=== PATIENT | female | born 1955 | race Two or more races ===

== ENCOUNTER → 2016-10-29 | Outpatient (CLI) | payer MEDICARE, MEDICAID | LOC: RAD 12:39 | PROVIDERS: ATTEND Urology | DX: N20.1 Calculus of ureter (principal) | CPT/HCPCS: 74178; 82565 ==

== ENCOUNTER 2018-09-04 12:19 | Emergency (ER) | payer MEDICARE, MEDICAID ==
--- NOTE | 2018-09-04 13:49 | ER Document Report ---
ED ENT - General Chief Complaint: Sore Throat Stated Complaint: SORE THROAT Time Seen by Provider: 09/04/18 13:06 Mode of Arrival: Ambulatory Information source: Patient Notes: 63-year-old female presents to ED for complaint of sore throat times a month worse at night when she lays down. She states she has been treated with antibiotics by her PCP. She states she went back to see him because she was not having any relief from the ear pain and sore throat. She states he referred her to ENT. She went to the ENT who told her that she had a normal ear but she had some fluid behind the ear and it would take 6-8 weeks for this to heal. Patient states she still continues to have stabbing pain and she cannot wait 6-8 weeks to have relief from this pain. She states she is taking tramadol this morning and did not have really any relief from her pain. Patient is alert and oriented respirations regular and unlabored speaking in full sentences walks with a gait. TRAVEL OUTSIDE OF THE [place] IN LAST 30 DAYS: No - HPI Patient complains to provider of: Ear problem, Nose problem, Throat problem Onset: Other - More than a month Onset/Duration: Persistent Quality of pain: Sharp, Stabbing Severity: Severe Pain Level: 5 Context: Recent Illness Location of pain: Ears, Nose, Throat Associated symptoms: Ear pain, Runny nose, Sinus pain, Sinus drainage, Sore throat, Swollen glands - Right-sided lymphadenopathy posterior cervical chain Similar symptoms previously: Yes Recently seen / treated by doctor: Yes - Related Data Allergies/Adverse Reactions: Penicillins Allergy (Verified 10/04/11 17:05) unknown Sulfa (Sulfonamide Antibiotics) Allergy (Verified 10/04/11 17:04) rash tetracycline [Tetracycline] Allergy (Verified 10/04/11 17:05) bone pain Iodinated Contrast- Oral and IV Dye [Iodinated Contrast Media - IV Dye] Adverse Reaction (Unverified 05/14/16 13:18) Itching Past Medical History - General Information source: Patient - Social History Smoking Status: Former Smoker Chew tobacco use (# tins/day): No Frequency of alcohol use: None Drug Abuse: None Lives with: Family Family History: Reviewed & Not Pertinent Patient has suicidal ideation: No Patient has homicidal ideation: No - Past Medical History Cardiac Medical History: Reports: Hx Hypercholesterolemia, Hx Hypertension Pulmonary Medical History: Reports: Hx Asthma EENT Medical History: Reports: None Neurological Medical History: Reports: None Endocrine Medical History: Reports: None Renal/ Medical History: Reports: None Malignancy Medical History: Reports: None GI Medical History: Reports: Hx Gastroesophageal Reflux Disease Musculoskeletal Medical History: Reports None Skin Medical History: Reports None Psychiatric Medical History: Reports: Hx Depression Traumatic Medical History: Reports: None Infectious Medical History: Reports: None Past Surgical History: Reports: Hx Cholecystectomy, Hx Hysterectomy, Hx Tonsillectomy - Immunizations Hx Diphtheria, Pertussis, Tetanus Vaccination: Yes - < 5 yrs Hx Pneumococcal Vaccination: 07/11/10 Review of Systems - Review of Systems Notes: REVIEW OF SYSTEMS: CONSTITUTIONAL : She states she has had cough cold congestion runny nose sore throat and ear pain for more than a month. She states the pain is worse at night and she feels like she has drainage down her throat at nighttime. She states that she has had swelling to the right side of her neck and her lymph nodes off and on. She states she has been treated by her PCP with antibiotics with no relief she was then referred to ENT who told her that it would take 6-8 weeks for the fluid removed from her ears. Patient states she cannot wait 6-8 weeks for relief. EENT: See above. Patient is not having any difficulty swallowing. She speaks in full sentences. CARDIOVASCULAR: Denies chest pain. Denies palpitations or racing or irregular heart beat. Denies ankle edema. RESPIRATORY: Denies cough, cold, or chest congestion. Denies shortness of breath, difficulty breathing, or wheezing. GASTROINTESTINAL: Denies abdominal pain or distention. Denies nausea, vomiting , or diarrhea. Denies blood in vomitus, stools, or per rectum. Denies black, tarry stools. Denies constipation. GENITOURINARY: Denies difficulty urinating, painful urination, burning, frequency, blood in urine, or discharge. FEMALE GENITOURINARY: Denies vaginal bleeding, heavy or abnormal periods, irregular periods. Denies vaginal discharge or odor. MUSCULOSKELETAL: Denies back or neck pain or stiffness. Denies joint pain or swelling. SKIN: Denies rash, lesions or sores. HEMATOLOGIC : Denies easy bruising or bleeding. LYMPHATIC: Denies swollen, enlarged glands. NEUROLOGICAL: Denies confusion or altered mental status. Denies passing out or loss of consciousness. Denies dizziness or lightheadedness. Denies headache. Denies weakness or paralysis or loss of use of either side. Denies problems with gait or speech. Denies sensory loss, numbness, or tingling. Denies seizures. PHYSICAL EXAMINATION: GENERAL: Well-appearing, well-nourished and in no acute distress. HEAD: Atraumatic, normocephalic. EYES: Pupils equal round and reactive to light, extraocular movements intact, conjunctiva are normal. ENT: Nares patent, oropharynx clear without exudates. Moist mucous membranes. Panic membrane intact no redness no bulging. NECK: Normal range of motion, right posterior cervical chain lymphadenopathy LUNGS: Breath sounds clear to auscultation bilaterally and equal. No wheezes rales or rhonchi. HEART: Regular rate and rhythm without murmurs ABDOMEN: Soft, nontender, nondistended abdomen. No guarding, no rebound. No masses appreciated. Female : deferred Musculoskeletal: Normal range of motion, no pitting or edema. No cyanosis. NEUROLOGICAL: Cranial nerves grossly intact. Normal speech, normal gait. Normal sensory, motor exams PSYCH: Normal mood, normal affect. SKIN: Warm, Dry, normal turgor, no rashes or lesions noted. PSYCHIATRIC: Denies anxiety or stress. Denies depression, suicidal ideation, or homicidal ideation. ALL OTHER SYSTEMS REVIEWED AND NEGATIVE. Dictation was performed using [employer] voice recognition software Physical Exam - Vital signs Vitals: Temp Pulse Resp BP Pulse Ox 98.2 F 58 L 16 189/63 H 97 09/04/18 12:25 09/04/18 12:25 09/04/18 12:25 09/04/18 12:25 09/04/18 12:25 Course - Vital Signs Vital signs: Temp Pulse Resp BP Pulse Ox 98.3 F 59 L 18 169/64 H 97 09/04/18 13:53 09/04/18 13:53 09/04/18 13:53 09/04/18 13:53 09/04/18 13:53 Discharge - Discharge Clinical Impression: Sore throat (viral), Lymphadenopathy of right cervical region, Otalgia, right ear URI (upper respiratory infection) Qualifiers: URI type: unspecified URI Qualified Code(s): J06.9 - Acute upper respiratory infection, unspecified Condition: Stable Disposition: HOME, SELF-CARE Additional Instructions: You were seen today for sore throat, right ear pain, right lymphadenopathy, and a upper respiratory infection that she states has been going on and off for over a month. You have seen your primary care doctor and you have seen your ears nose and throat doctor. Ears nose and throat doctor did tell you there will take 6-8 weeks to get full relief. UPPER RESPIRATORY ILLNESS: You have a viral infection of the respiratory passages -- a "cold." This common infection causes nasal congestion, drainage, and often sore throat and cough. It is highly contagious. The disease usually lasts about 10 to 14 days. There is no "cure" for the viral infection -- it must run its course. If there is a complication, such as bacterial infection in the nose, sinuses, middle ear, or bronchial tubes, antibiotics may be required. The antibiotics won't affect the virus. Drink plenty of fluids. A humidifier may help. An expectorant medication or decongestant may make you more comfortable. Use acetaminophen or ibuprofen for fever or aches. See the doctor if fever persists over two days, if there is any significant worsening of your symptoms, or if you simply fail to improve as expected. COUGH-SUPPRESSANT & EXPECTORANT MEDICATION: You are to use a cough medication as needed for relief of symptoms. This medicine is a combination of an expectorant (to make the mucous thinner and more easily "coughed up") and a cough suppressant (to reduce the frequency of coughing). The cough-suppressant medicine is related to narcotics. You may experience mild nausea and sleepiness. Some patients who are very sensitive to narcotics may have stomach pain from this medicine. Taking the medicine with food reduces these side effects. Do not drive or work with machinery until you know how this medicine affects you. The expectorant should have no side effects. Iodine-containing expectorants (such as organidin) should not be taken by persons with active thyroid disease unless approved by your doctor. Call the doctor if you develop shortness of breath, hives, rash, itching, lightheadedness, or severe nausea and vomiting. USE OF ACETAMINOPHEN (Tylenol): Acetaminophen may be taken for pain relief or fever control. It's much safer than aspirin, offering a wider range of "safe" dosages. It is safe during . Some brand names are Tylenol, Panadol, Datril, Anacin 3, Tempra, and Liquiprin. Acetaminophen can be repeated every four hours. The following are maximum recommended dosages: >89 pounds or adults 650 mg to 900 mg Acetaminophen can be repeated every four hours. Maximum dose not to exceed 4000 mg a day. For your sore throat and went to to try Chloraseptic spray which is over-the- counter, salt and soda solution gargles which I have given you directions for, and Magic mouthwash which to gargle and swallow which will help to decrease the pain in your throat. You need to follow-up with your primary care doctor in the next 2-3 days to let him know that your symptoms are continuing. If your ear pain continues you need to follow-up with the ears nose and throat doctor again. Have your primary doctor reassessed your lymphadenopathy or your swelling to the right side of your neck when you follow-up with him. Continue to take your current medications as prescribed. Your blood pressure was a little high today and you need to follow-up with your primary doctor on that as we discussed. Salt and soda solution 1 quart of water 1 tablespoon of salt 1 teaspoon of baking soda Mixed 3 ingredients together and boil for 1 minute Placed in a covered quart jar Use 1/2 ounce of warm solution to gargle 3 times a day FOLLOW-UP CARE: If you have been referred to a physician for follow-up care, call the physician s office for an appointment as you were instructed or within the next two days. If you experience worsening or a significant change in your symptoms, notify the physician immediately or return to the Emergency Department at any time for re-evaluation. Prescriptions: Nystatin/Dexameth/Diphen [Magic Mouthwash ([facility] Formula) Susp] 5 ml PO QID #120 ml Forms: Elevated Blood Pressure Referrals: AURORA TAYLOR MD [Primary Care Provider] - 09/05/18
[2018-09-04 13:54] VITALS: BP 169/64
== END 2018-09-04 13:58 | disposition home or self-care (01) ==
LOC: ER 12:19
DX: J06.9 Acute upper respiratory infection, unspecified (principal); R59.0 Localized enlarged lymph nodes; H92.01 Otalgia, right ear; J02.9 Acute pharyngitis, unspecified; B97.89 Other viral agents as the cause of diseases classified elsewhere; H92.09 Otalgia, unspecified ear; R09.89 Other specified symptoms and signs involving the circulatory and respiratory systems; Z87.891 Personal history of nicotine dependence; I10 Essential (primary) hypertension; J45.909 Unspecified asthma, uncomplicated
CPT/HCPCS: 99282

== ENCOUNTER 2018-09-09 17:32 | Emergency (ER) | payer MEDICARE, MEDICAID ==
[2018-09-09] MEDS ORDERED: ASPIRIN 81 MG TABLET, CHEWABLE PO ONE (18:43)
--- NOTE | 2018-09-09 18:44 | ER Document Report ---
ED Medical Screen (RME) - General Chief Complaint: Chest Pain Stated Complaint: EAR/CHEST/ARM PAIN Time Seen by Provider: 09/09/18 18:42 Mode of Arrival: Ambulatory Information source: Patient Notes: 63 years old female presents today with earache sore throat cough left precordial chest pain radiating to the left arm for the last 2 days. She kept on complaining many things. Examination by large normal TRAVEL OUTSIDE OF THE [place] IN LAST 30 DAYS: No - Related Data Allergies/Adverse Reactions: Penicillins Allergy (Verified 09/09/18 17:35) unknown Sulfa (Sulfonamide Antibiotics) Allergy (Verified 09/09/18 17:35) rash tetracycline [Tetracycline] Allergy (Verified 09/09/18 17:35) bone pain Iodinated Contrast- Oral and IV Dye [Iodinated Contrast Media - IV Dye] Adverse Reaction (Verified 09/09/18 17:35) Itching Past Medical History - Past Medical History Cardiac Medical History: Reports: Hx Hypercholesterolemia, Hx Hypertension Pulmonary Medical History: Reports: Hx Asthma Renal/ Medical History: Denies: Hx Peritoneal Dialysis GI Medical History: Reports: Hx Gastroesophageal Reflux Disease Psychiatric Medical History: Reports: Hx Depression Past Surgical History: Reports: Hx Cholecystectomy, Hx Hysterectomy, Hx Tonsillectomy - Immunizations Hx Diphtheria, Pertussis, Tetanus Vaccination: Yes - < 5 yrs Physical Exam - Vital signs Vitals: Temp Pulse Resp BP Pulse Ox 98.6 F 71 18 182/68 H 97 09/09/18 17:38 09/09/18 17:38 09/09/18 17:38 09/09/18 17:38 09/09/18 17:38 Course - Vital Signs Vital signs: Temp Pulse Resp BP Pulse Ox 98.6 F 71 18 182/68 H 97 09/09/18 17:38 09/09/18 17:38 09/09/18 17:38 09/09/18 17:38 09/09/18 17:38 Doctor's Discharge - Discharge Referrals: AURORA TAYLOR MD [Primary Care Provider] - Follow up as needed
--- NOTE | 2018-09-09 19:23 | RADIOLOGY REPORT (SQ) ---
EXAM DESCRIPTION: CHEST SINGLE VIEW COMPLETED DATE/TIME: 09/09/2018 7:09 pm REASON FOR STUDY: Chest pain COMPARISON: 08/03/2010 and earlier EXAM PARAMETERS: NUMBER OF VIEWS: One view. TECHNIQUE: Single frontal radiographic view of the chest acquired. RADIATION DOSE: NA LIMITATIONS: None. FINDINGS: LUNGS AND PLEURA: Skin fold versus small right basilar pneumothorax. No left-sided pneumo thorax. No pleural effusion or focal consolidation. MEDIASTINUM AND HILAR STRUCTURES: No masses. Contour normal. HEART AND VASCULAR STRUCTURES: Heart normal in size. Normal vasculature. BONES: No acute findings. HARDWARE: None in the chest. OTHER: No other significant finding. IMPRESSION: Skin fold versus small right basilar pneumothorax. Recommend repeat PA and lateral radi ographs for clarification. TECHNICAL DOCUMENTATION: JOB ID: [id number] [employer]- All Rights Reserved Reading location - IP/workstation name: [email or web address]
[2018-09-09 19:33] LABS: ABSOLUTE BASOPHILS # (AUTO) 0.1 10^3/uL (0.0-0.2); ABSOLUTE EOSINOPHILS # (AUTO) 0.5 10^3/uL (0.0-0.6); ABSOLUTE LYMPHOCYTES (AUTO) 2.5 10^3/uL (0.5-4.7); ABSOLUTE MONOCYTES (AUTO) 0.6 10^3/uL (0.1-1.4); BASOPHILS % (AUTO) 1.4 % (0-2); EOSINOPHILS % (AUTO) 5.4 % (0-6); HEMATOCRIT 37.6 % (36.0-47.0); HEMOGLOBIN 11.5 g/dL (12.0-15.5); LYMPHOCYTES % (AUTO) 28.7 % (13-45); MEAN CORPUSCULAR HEMOGLOBIN 18.5 pg (27.0-33.4); MEAN CORPUSCULAR HGB CONC 30.6 g/dL (32.0-36.0); MONOCYTES % (AUTO) 6.5 % (3-13); PLATELET COUNT 271 10^3/uL (150-450); RED BLOOD COUNT 6.22 10^6/uL (3.72-5.28); RED CELL DISTRIBUTION WIDTH 20.4 % (11.5-14.0); TOTAL CELLS COUNTED % (AUTO) 100 %; WHITE BLOOD COUNT 8.7 10^3/uL (4.0-10.5)
[2018-09-09 19:47] LABS: PLATELET COMMENT ADEQUATE
--- NOTE | 2018-09-09 19:47 | EKG REPORT ---
SEVERITY:- ABNORMAL ECG - SINUS RHYTHM LEFT VENTRICULAR HYPERTROPHY : Confirmed by: Nitish Hernandez MD 09-Sep-2018 19:46:46
[2018-09-09 19:49] LABS: OVALOCYTES SLIGHT
[2018-09-09 19:50] LABS: MEAN CORPUSCULAR VOLUME 61 fl (80-97); POIKILOCYTOSIS SLIGHT
[2018-09-09 19:51] LABS: ALBUMIN 4.3 g/dL (3.5-5.0); ALKALINE PHOSPHATASE 80 U/L (38-126); ANION GAP 14 (5-19); ASPARTATE AMINO TRANSFERASE 15 U/L (14-36); BLOOD UREA NITROGEN 9 mg/dL (7-20); CALCIUM 9.9 mg/dL (8.4-10.2); CARBON DIOXIDE 30 mmol/L (22-30); CHLORIDE 102 mmol/L (98-107); GLUCOSE 121 mg/dL (75-110); POTASSIUM 4.2 mmol/L (3.6-5.0); SODIUM 146.1 mmol/L (137-145)
[2018-09-09 19:52] LABS: ALANINE AMINOTRANSFERASE 9 U/L (9-52); BILIRUBIN,DIRECT 0.3 mg/dL (0.0-0.4); BILIRUBIN,TOTAL 1.1 mg/dL (0.2-1.3); CREATINE KINASE 32 U/L (30-135); TOTAL PROTEIN 8.1 g/dL (6.3-8.2)
[2018-09-09 20:03] LABS: CREATINE KINASE MB 0.51 ng/mL (<4.55)
[2018-09-09 20:08] LABS: TROPONIN I < 0.012 ng/mL
[2018-09-09 20:29] LABS: FREE T3 3.22 pg/mL (2.77-5.27); FREE T4 (FREE THYROXINE) 1.07 ng/dL (0.78-2.19); THYROID STIMULATING HORMONE 1.85 uIU/mL (0.47-4.68)
--- NOTE | 2018-09-09 22:31 | ER Document Report ---
ED Cardiac - General Chief Complaint: Chest Pain Stated Complaint: EAR/CHEST/ARM PAIN Time Seen by Provider: 09/09/18 18:42 Mode of Arrival: Ambulatory Information source: Patient TRAVEL OUTSIDE OF THE [place] IN LAST 30 DAYS: No - HPI Patient complains to provider of: Chest pain Is the pain a: New problem Chest pain location: Substernal Quality of pain: Cramping Chest pain radiation location: Left arm Severity now: Moderate Severity at worst: Moderate Pain level currently: 3 Chest pain precipitating factors: At Rest Cardiac risk factors: Hypertension Positive cardiac history: No Associated symptoms: None Exacerbated by: Denies Relieved by: Nothing Notes: Patient is a 63-year-old female presenting to the emergency room complaining of left-sided chest pain that radiates to her arm, it comes in waves and is cramping in nature, symptoms have been going on for the past week, worsened somewhat today, states it feels like a spasm, she reports having a upper respiratory viral illness approximately 1 month ago with an ear infection shortly thereafter that she was treated with antibiotics for, she is reporting a sore throat today as well as nasal drainage, denies a fever, cough is nonproductive - Related Data Allergies/Adverse Reactions: Penicillins Allergy (Verified 09/09/18 17:35) unknown Sulfa (Sulfonamide Antibiotics) Allergy (Verified 09/09/18 17:35) rash tetracycline [Tetracycline] Allergy (Verified 09/09/18 17:35) bone pain Iodinated Contrast- Oral and IV Dye [Iodinated Contrast Media - IV Dye] Adverse Reaction (Verified 09/09/18 17:35) Itching Past Medical History - General Information source: Patient - Social History Smoking Status: Never Smoker Chew tobacco use (# tins/day): No Frequency of alcohol use: None Drug Abuse: None Family History: Reviewed & Not Pertinent Patient has suicidal ideation: No Patient has homicidal ideation: No - Past Medical History Cardiac Medical History: Reports: Hx Hypercholesterolemia, Hx Hypertension Pulmonary Medical History: Reports: Hx Asthma Renal/ Medical History: Denies: Hx Peritoneal Dialysis GI Medical History: Reports: Hx Gastroesophageal Reflux Disease Psychiatric Medical History: Reports: Hx Depression Past Surgical History: Reports: Hx Cholecystectomy, Hx Hysterectomy, Hx Tonsillectomy - Immunizations Hx Diphtheria, Pertussis, Tetanus Vaccination: Yes - < 5 yrs Hx Pneumococcal Vaccination: 10/01/10 Review of Systems - Review of Systems Constitutional: No symptoms reported EENT: See HPI Cardiovascular: See HPI Respiratory: See HPI Gastrointestinal: No symptoms reported Genitourinary: No symptoms reported Female Genitourinary: No symptoms reported Musculoskeletal: See HPI Skin: No symptoms reported Hematologic/Lymphatic: No symptoms reported Neurological/Psychological: No symptoms reported -: Yes All other systems reviewed and negative Physical Exam - Vital signs Vitals: Temp Pulse Resp BP Pulse Ox 98.6 F 71 18 182/68 H 97 09/09/18 17:38 09/09/18 17:38 09/09/18 17:38 09/09/18 17:38 09/09/18 17:38 Interpretation: Hypertensive - General General appearance: Appears well, Alert In distress: None - HEENT Head: Normocephalic, Atraumatic Eyes: Normal Conjunctiva: Normal Eyelashes: Normal Pupils: PERRL Pharynx: Erythema. No: Exudate, Tonsillar hypertrophy, Uvular edema, Potential airway comprom. Neck: Normal - Respiratory Respiratory status: No respiratory distress Chest status: Nontender Breath sounds: Normal Chest palpation: Normal - Cardiovascular Rhythm: Regular Heart sounds: Normal auscultation Murmur: No - Abdominal Inspection: Normal Distension: No distension Bowel sounds: Normal Tenderness: Nontender Organomegaly: No organomegaly - Back Back: Normal, Nontender - Extremities General upper extremity: Normal inspection, Nontender, Normal color, Normal ROM , Normal temperature General lower extremity: Normal inspection, Nontender, Normal color, Normal ROM , Normal temperature, Normal weight bearing. No: Jamil's sign - Neurological Neuro grossly intact: Yes Cognition: Normal Orientation: AAOx4 [place] Coma Scale Eye Opening: Spontaneous [place] Coma Scale Verbal: Oriented [place] Coma Scale Motor: Obeys Commands [place] Coma Scale Total: 15 Speech: Normal Motor strength normal: LUE, RUE, LLE, RLE Sensory: Normal - Psychological Associated symptoms: Normal affect, Normal mood - Skin Skin Temperature: Warm Skin Moisture: Dry Skin Color: Normal Course - Re-evaluation Re-evalutation: 09/09/18 23:08 Lab and imaging findings discussed with patient at bedside which are unremarkable except for some mild incidental findings, her symptoms have been going on for the last week, and she has been seen in this emergency department as well as by her primary care provider for them with unremarkable workups each time, patient was advised to continue following with with her primary care provider, was given a prescription for Flexeril for muscle spasms and advised to return if symptoms worsen, patient acknowledges understanding and agreement with this plan - Vital Signs Vital signs: Temp Pulse Resp BP Pulse Ox 98.3 F 71 18 191/65 H 99 09/09/18 22:00 09/09/18 17:38 09/09/18 17:38 09/09/18 22:02 09/09/18 22:02 - Laboratory Result Diagrams: 09/09/18 19:16 09/09/18 19:16 Laboratory results interpreted by me: 09/09/18 09/09/18 19:16 19:16 RBC 6.22 H Hgb 11.5 L MCV 61 L MCH 18.5 L MCHC 30.6 L RDW 20.4 H Sodium 146.1 H Glucose 121 H - Diagnostic Test Radiology reviewed: Image reviewed, Reports reviewed - EKG Interpretation by Me EKG shows normal: Sinus rhythm Rate: Normal Rhythm: NSR Voltage: Consistant with [facility]H Discharge - Discharge Clinical Impression: Throat pain Chest pain Qualifiers: Chest pain type: unspecified Qualified Code(s): R07.9 - Chest pain, unspecified Condition: Stable Disposition: HOME, SELF-CARE Instructions: Chest Pain of Unclear Cause ([facility]) Additional Instructions: Follow up with your primary care provider in one to 2 days. Return to the emergency room immediately if symptoms worsen or any additional concerns. Prescriptions: Cyclobenzaprine HCl [Flexeril 10 Mg Tablet] 10 mg PO TID #10 tablet Referrals: AURORA TAYLOR MD [Primary Care Provider] - Follow up as needed
[2018-09-09] MEDS ORDERED: NEBIVOLOL HCL 5 MG TABLET PO STA (22:32)
[2018-09-09 22:39] VITALS: BP 191/65
[2018-09-12 11:43] LABS: PATH REVIEW PATHOLOGIST REVIEWED
== END 2018-09-09 22:46 | disposition home or self-care (01) ==
LOC: ER 17:32
DX: R07.9 Chest pain, unspecified (principal); R07.0 Pain in throat; E78.00 Pure hypercholesterolemia, unspecified; I10 Essential (primary) hypertension; Z88.0 Allergy status to penicillin; Z88.2 Allergy status to sulfonamides; Z90.49 Acquired absence of other specified parts of digestive tract; Z90.710 Acquired absence of both cervix and uterus
CPT/HCPCS: 93005; 99285; 36415; 87070; 84439; 82553; 87880; 82550; 84443; 85025; 80053; 84484; 84481; 71045; 93010; A9270

== ENCOUNTER → 2019-06-22 | Outpatient (CLI) | payer MEDICARE, MEDICAID ==
[2019-06-22 09:51] LABS: HEMATOCRIT 38.2 % (36.0-47.0); HEMOGLOBIN 11.7 g/dL (12.0-15.5); MEAN CORPUSCULAR HEMOGLOBIN 19.2 pg (27.0-33.4); MEAN CORPUSCULAR HGB CONC 30.6 g/dL (32.0-36.0); PLATELET COUNT 318 10^3/uL (150-450); RED CELL DISTRIBUTION WIDTH 20.5 % (11.5-14.0); WHITE BLOOD COUNT 7.4 10^3/uL (4.0-10.5)
[2019-06-22 10:18] LABS: ALBUMIN 4.5 g/dL (3.5-5.0); ALKALINE PHOSPHATASE 70 U/L (38-126); ANION GAP 11 (5-19); ASPARTATE AMINO TRANSFERASE 22 U/L (14-36); BILIRUBIN,DIRECT 0.1 mg/dL (0.0-0.4); BILIRUBIN,TOTAL 1.1 mg/dL (0.2-1.3); BLOOD UREA NITROGEN 13 mg/dL (7-20); CALCIUM 10.3 mg/dL (8.4-10.2); CARBON DIOXIDE 29 mmol/L (22-30); CHLORIDE 101 mmol/L (98-107); CHOLESTEROL 198.89 mg/dL (0-200); GLUCOSE 101 mg/dL (75-110); POTASSIUM 4.3 mmol/L (3.6-5.0); TOTAL PROTEIN 7.6 g/dL (6.3-8.2); TRIGLYCERIDES 167 mg/dL (<150)
[2019-06-22 10:29] LABS: DIRECT LDL 111 mg/dL (<100)
[2019-06-22 10:32] LABS: FREE T3 2.88 pg/mL (2.77-5.27)
[2019-06-22 10:39] LABS: MEAN CORPUSCULAR VOLUME 63 fl (80-97)
[2019-06-22 10:46] LABS: THYROID STIMULATING HORMONE 2.02 uIU/mL (0.47-4.68)
[2019-06-22 11:09] LABS: VLDL CHOLESTEROL 33.4 mg/dL (10-31)
[2019-06-23 10:59] LABS: PATH REVIEW PATHOLOGIST REVIEWED
[2019-06-23 13:21] LABS: HSV-I IGG AB 38.9 index (0.00-0.90)
== END ==
LOC: OD 08:18
PROVIDERS: ATTEND Internal Medicine Geriatric Medicine
DX: I10 Essential (primary) hypertension (principal); E03.9 Hypothyroidism, unspecified; E55.9 Vitamin D deficiency, unspecified; R68.82 Decreased libido; A60.00 Herpesviral infection of urogenital system, unspecified; R53.83 Other fatigue
CPT/HCPCS: 36415; 80053; 80061; 82306; 82607; 82670; 83001; 84403; 84436; 84443; 84481; 85027; 86376; 86695